=== PATIENT | female | born 1950 | race Caucasian/White ===

== ENCOUNTER → 2017-04-20 | Outpatient (CLI) | payer OTHER ==
--- NOTE | 2017-04-20 12:39 | REPMRS ---
Patient History The patient states she has not had a clinical breast exam in over a year. Patient is postmenopausal. Family history of breast cancer in 2 sisters at age 50 or over. Digital Woman Screen Mammo: April 20, 2017 - Exam #: [id number] Bilateral CC and MLO view(s) were taken. Technologist: Nancie Elizabeth, Technologist Prior study comparison: April 04, 2016, digital woman screen mammo performed at [facility]. January 12, 2015, digital woman screen mammo performed at [facility] to [facility]. FINDINGS: There are scattered fibroglandular densities. There has been no change in the appearance of the mammogram from the prior studies. There is a moderate amount of residual fibroglandular tissue which is fairly symmetric. There is no interval development of dominant mass, architectural distortion, or clustered microcalcification suggestive of malignancy. There are scattered, small, benign calcifications of doubtful clinical significance. Scattered lymph nodes are seen in the right axilla. Large coarse benign appearing calcifications are present. No interval changes. No significant changes when compared with prior studies. ASSESSMENT: BI-RADS/ACR category 2 mammogram. Benign finding(s). Recommendation Routine screening mammogram in 1 year (for women over age 40). This mammogram was interpreted with the aid of an FDA-approved computer-aided dectection system. A. Negative x-ray reports should not delay biopsy if a dominant or clinically suspicious mass is present. B. Four to eight percent of cancers are not identified by mammography. C. Adenosis and dense breast may obscure an underlying neoplasm. Electronically Signed By: Austin Jackman MD 04/20/17 [id number]
--- NOTE | 2017-04-21 09:39 | DEXA ---
AP SPINE L1 - L4 1.212 0.1 1.8 LT FEMUR TOTAL 1.217 1.7 2.9 RT FEMUR TOTAL 1.199 1.5 2.8 TOTAL BODY TOTAL OTHER COMMENTS: Normal bone densitometry of the spine. Normal bone densitometry of the left hip. Normal bone densitometry of the right hip. The increased density of the spine does represent a significant change since 01/2012. The decreased density of the left hip does represent a significant change since 09/24/2011. The decreased density of the right hip does represent a significant change. The density of the spine is decreased 8.5% since the initial exam on 10/14/2006. The spine density has increased 0.4% since the most recent exam on 09/24/2011. The density of the left hip has decreased 0.7% since the initial exam on 2006. The density of the left hip has decreased 2.7% since the most recent exam on 01/2012. The density of the right hip has decreased 2.0% since the initial exam on 2006. The density of the right hip has decreased 2.3% since the most recent exam on . FOLLOW-UP: Recommendation for the next bone density exam: 5 years. ANTHONY
== END ==
LOC: M WHC 09:47
PROVIDERS: ATTEND Nurse Practitioner Family
DX: Z12.31 Encounter for screening mammogram for malignant neoplasm of breast (principal); Z13.820 Encounter for screening for osteoporosis; Z78.0 Asymptomatic menopausal state; Z80.3 Family history of malignant neoplasm of breast
CPT/HCPCS: 77080; G0202

== ENCOUNTER → 2018-05-06 | Outpatient (CLI) | payer MEDICARE, OTHER ==
--- NOTE | 2018-05-06 15:07 | REPMRS ---
Patient History The patient states she has not had a clinical breast exam in over a year. Family history of breast cancer at age 50 or over in sister, breast cancer at age 50 or over in sister. Digital Woman Screen Mammo: May 06, 2018 - Exam #: [id number] Bilateral CC and MLO view(s) were taken. Technologist: Nancie Elizabeth, Technologist Prior study comparison: April 20, 2017, digital woman screen mammo performed at [facility]. April 04, 2016, digital woman screen mammo performed at [facility]. January 12, 2015, digital woman screen mammo performed at [facility] to [facility]. FINDINGS: There are scattered fibroglandular densities. There has been no change in the appearance of the mammogram from the prior studies. There is a mild amount of scattered fibroglandular density which is fairly symmetric. There is no interval development of dominant mass, architectural distortion, or clustered microcalcification suggestive of malignancy. 3-D tomosynthesis shows no additional findings. Assessment: BI-RADS/ACR category 1 mammogram. Negative. Recommendation Routine screening mammogram of both breasts in 1 year (for women over age 40). This patient's Lifetime Breast Cancer RIsk is estimated at 11.9 %. This mammogram was interpreted with the aid of an FDA-approved computer-aided dectection system. Electronically Signed By: Hal Hassan MD 05/06/18 [id number]
== END ==
LOC: M WHC 13:52
PROVIDERS: ATTEND Nurse Practitioner Family
DX: Z12.31 Encounter for screening mammogram for malignant neoplasm of breast (principal); Z80.3 Family history of malignant neoplasm of breast

== ENCOUNTER → 2019-06-29 | Outpatient (CLI) | payer MEDICARE, OTHER ==
--- NOTE | 2019-06-29 13:40 | REPMRS ---
Patient History Family history of breast cancer at age 50 or over in sister, breast cancer at age 50 or over in sister. The patient states she has not had a clinical breast exam in over a year. Digital Woman Screen Mammo: June 29, 2019 - Exam #: [id number] Bilateral CC and MLO view(s) were taken. Technologist: RT Fede Prior study comparison: May 06, 2018, bilateral digital woman screen mammo performed at [facility]. April 20, 2017, digital woman screen mammo performed at [facility]. April 04, 2016, digital woman screen mammo performed at [facility]. FINDINGS: There are scattered fibroglandular densities. There has been no change in the appearance of the mammogram from the prior studies. There is a mild amount of scattered fibroglandular density which is fairly symmetric. There is no interval development of dominant mass, architectural distortion, or grouped microcalcification suggestive of malignancy. 3-D tomosynthesis shows no additional findings. Assessment: BI-RADS/ACR category 1 mammogram. Negative Mammogram. Recommendation Routine screening mammogram of both breasts in 1 year (for women over age 40). This patient's Lifetime Breast Cancer Risk is estimated at 11.2 %. This mammogram was interpreted with the aid of an FDA-approved computer-aided dectection system. Electronically Signed By: Hal Hassan MD 06/29/19 [id number]
== END ==
LOC: M WHC 09:54
PROVIDERS: ATTEND Physician Assistant
DX: Z12.31 Encounter for screening mammogram for malignant neoplasm of breast (principal)

== ENCOUNTER → 2020-08-13 | Outpatient (CLI) | payer MEDICARE, OTHER ==
--- NOTE | 2020-08-13 11:01 | REPMRS ---
Patient History The patient states she had a clinical breast exam in 07/2020 Patient is postmenopausal. Family history of breast cancer at age 50 or over in sister, breast cancer at age 50 or over in sister, pancreatic cancer at age 81 in sister. Digital Woman Screen Mammo: August 13, 2020 - Exam #: [id number] Bilateral CC and MLO view(s) were taken. Technologist: Nancie Elizabeth, Technologist Prior study comparison: June 29, 2019, bilateral digital woman screen mammo performed at [facility]. May 06, 2018, bilateral digital woman screen mammo performed at [facility]. April 20, 2017, digital woman screen mammo performed at [facility]. FINDINGS: There are scattered fibroglandular densities. The Volpara volumetric breast density category is:B. There has been no change in the appearance of the mammogram from the prior studies. There is a mild amount of scattered fibroglandular density which is fairly symmetric. There is no interval development of dominant mass, architectural distortion, or grouped microcalcification suggestive of malignancy. 3-D tomosynthesis shows no additional findings. Assessment: BI-RADS/ACR category 1 mammogram. Negative Mammogram. Recommendation Routine screening mammogram of both breasts in 1 year (for women over age 40). This patient's [facility] Lifetime Breast Cancer Risk is estimated at 10.0 %. This mammogram was interpreted with the aid of an FDA-approved computer-aided dectection system. Electronically Signed By: Hal Hassan MD 08/13/20 [id number]
== END ==
LOC: M WHC 10:10
PROVIDERS: ATTEND Nurse Practitioner Family
DX: Z12.31 Encounter for screening mammogram for malignant neoplasm of breast (principal); Z80.3 Family history of malignant neoplasm of breast; Z80.0 Family history of malignant neoplasm of digestive organs

== ENCOUNTER → 2021-08-27 | Outpatient (CLI) | payer MEDICARE, OTHER | LOC: M WHC 10:12 | PROVIDERS: ATTEND Nurse Practitioner Family | DX: Z12.31 Encounter for screening mammogram for malignant neoplasm of breast (principal) ==

== ENCOUNTER → 2022-08-29 | Outpatient (CLI) | payer MEDICARE, OTHER | LOC: M WHC 09:32 | PROVIDERS: ATTEND Nurse Practitioner Family | DX: Z12.31 Encounter for screening mammogram for malignant neoplasm of breast (principal) ==

== ENCOUNTER → 2023-11-23 | Outpatient (CLI) | payer MEDICARE, OTHER | LOC: M WHC 12:32 | PROVIDERS: ATTEND Nurse Practitioner Family | DX: Z12.31 Encounter for screening mammogram for malignant neoplasm of breast (principal); M81.0 Age-related osteoporosis without current pathological fracture ==

== ENCOUNTER → 2023-12-07 | Outpatient (CLI) | payer MEDICARE, OTHER ==
[~2023-12-07] MED LIST: ASPI81TA26 PO; SIMV20TA22 PO
== END ==
LOC: M WHC 14:19
PROVIDERS: ATTEND Nurse Practitioner Family
DX: R92.2 Inconclusive mammogram (principal)

== ENCOUNTER 2023-12-17 07:33 | Day surgery (SDC) | payer MEDICARE, OTHER ==
[~2023-12-17] VITALS: Ht 160 cm; Wt 73.5 kg
[~2023-12-17 07:33] MED LIST changes: +PHENYLEPHRINE 10% OPHTH SOL 5ML OD PRN
[2023-12-17] MEDS: TROPICAMIDE 1% OPHTH SOLN 15ML OD SCH (07:59)
[2023-12-17] MEDS: ATROPINE SULFATE 1% OPHTH SOLN 2ML BTL OD SCH (07:59)
[2023-12-17] MEDS: LIDOCAINE 3.5 % 1ML OPHTH TOPICAL GEL OU ONE (08:00)
[2023-12-17] MEDS: PHENYLEPHRINE 2.5% OPHTH SOL 2ML OD SCH (08:00)
[2023-12-17] MEDS: OFLOXACIN 0.3 % (OCUFLOX) OPTH SOL 5ML OD ONE (08:00)
[2023-12-17] MEDS ORDERED: fentaNYL 100 MCG/2 ML INJECTION As Ordered ONE (08:31)
[2023-12-17] MEDS ORDERED: MIDAZOLAM INJ 2MG/2ML VIAL As Ordered ONE (08:33)
[2023-12-17] MEDS: LIDOCAINE 1% SDV 5ML VIAL As Ordered ONE (08:49)
[2023-12-17] MEDS: CEFUROXIME 1MG/0.1ML INTRACAMERAL INJ As Ordered ONE (08:49)
[2023-12-17] MEDS: BSS IRRIG/VANCO(10MG)/TOBRA(5MG)/EPINEPH(1:1000-0.5CC)500ML BAG-ORONLY As Ordered ONE (08:50)
[2023-12-17 08:58] VITALS: BP 160/82; TEMP 96.6; O2SAT 96
== END 2023-12-17 09:20 | disposition home or self-care (01) ==
LOC: M SDC 07:33
PROVIDERS: ATTEND Ophthalmology
DX: H25.11 Age-related nuclear cataract, right eye (principal); Z79.899 Other long term (current) drug therapy; Z79.82 Long term (current) use of aspirin
CPT/HCPCS: 66984; J0697; J2250; J3010; V2632

== ENCOUNTER 2023-12-31 06:09 | Day surgery (SDC) | payer MEDICARE, OTHER ==
[~2023-12-31] VITALS: Ht 160 cm; Wt 73.4 kg
[~2023-12-31 06:09] MED LIST changes: -PHENYLEPHRINE 10% OPHTH SOL 5ML OD PRN; +PHENYLEPHRINE 10% OPHTH SOL 5ML OS PRN
[2023-12-31] MEDS: PHENYLEPHRINE 2.5% OPHTH SOL 2ML OS SCH (06:54)
[2023-12-31] MEDS: OFLOXACIN 0.3 % (OCUFLOX) OPTH SOL 5ML OS ONE (06:54)
[2023-12-31] MEDS: ATROPINE SULFATE 1% OPHTH SOLN 2ML BTL OS SCH (06:54)
[2023-12-31] MEDS: TROPICAMIDE 1% OPHTH SOLN 15ML OS SCH (06:54)
[2023-12-31] MEDS: LIDOCAINE 3.5 % 1ML OPHTH TOPICAL GEL OU ONE (06:54)
[2023-12-31] MEDS ORDERED: fentaNYL 100 MCG/2 ML INJECTION As Ordered ONE (08:01)
[2023-12-31] MEDS ORDERED: MIDAZOLAM INJ 2MG/2ML VIAL As Ordered ONE (08:01)
[2023-12-31] MEDS: CEFUROXIME 1MG/0.1ML INTRACAMERAL INJ As Ordered ONE (08:04)
[2023-12-31] MEDS: BSS IRRIG/VANCO(10MG)/TOBRA(5MG)/EPINEPH(1:1000-0.5CC)500ML BAG-ORONLY As Ordered ONE (08:04)
[2023-12-31] MEDS: LIDOCAINE 1% SDV 5ML VIAL As Ordered ONE (08:04)
[2023-12-31 08:19] VITALS: BP 160/77; TEMP 98.1; O2SAT 95
== END 2023-12-31 08:30 | disposition home or self-care (01) ==
LOC: M SDC 06:09
PROVIDERS: ATTEND Ophthalmology
DX: H25.12 Age-related nuclear cataract, left eye (principal); Z98.41 Cataract extraction status, right eye; Z79.82 Long term (current) use of aspirin; Z79.899 Other long term (current) drug therapy